=== PATIENT | female | born 1930 | race Caucasian/White ===

== ENCOUNTER 2017-02-19 07:59 | Observation (INO) | payer MEDICARE, OTHER ==
[~2017-02-19] VITALS: Ht 154.9 cm; Wt 53.4 kg
[~2017-02-19 07:59] MED LIST: BENADRYL25 M2 PO; FLONASE NASAL S16 GM NS; LOPRESSOR 550 MG/TAB PO; NORVASC2.5 MG PO; PREDNISONE20 MG PO; PRINIVIL5 MG PO; PROVENTIL0.09 MG/AC IH; ZANTAC 150MG T150 MG PO
[2017-02-19 08:56] LABS: BASO % 0.6 % (0.0-2.0); EOS # 0.1 (0.0-0.7); EOS % 2.4 % (0-4.0); GRAN # 3.4 (1.4-6.5); GRAN % 69.2 % (42.2-75.2); HEMATOCRIT 38.8 % (37.0-47.0); HEMOGLOBIN 13.4 g/dl (12.5-16.0); LYMPH % 19.3 % (20.0-51.0); MEAN CELL VOLUME 87 fl (80.0-100.0); MEAN CORPUSCULAR HEMOGLOBIN 30 pg (27.0-31.0); MEAN CORPUSCULAR HGB CONC 35 g/dl (33.0-37.0); MEAN PLATELET VOLUME 8.5 fl (7.4-10.4); MONO # 0.4 (0.1-0.6); MONO % 8.1 % (1.7-9.3); PLATELET COUNT 221 K/mm3 (130-400); RED BLOOD COUNT 4.45 M/mm3 (4.10-5.30); WHITE BLOOD COUNT 4.9 K/mm3 (4.8-10.8)
[2017-02-19 08:57] LABS: PH 6 (5-8); URINE APPEARANCE Clear; URINE BILIRUBIN Negative (NEGATIVE); URINE BLOOD Negative (NEGATIVE); URINE COLOR Yellow; URINE GLUCOSE Negative (NEGATIVE); URINE KETONE Negative (NEGATIVE); URINE UROBILINOGEN Negative (NEGATIVE)
[2017-02-19 08:59] LABS: SQUAMOUS EPITHELIAL None Seen /hpf; URINE BACTERIA Rare /hpf; URINE RBC 0-2 /hpf; URINE WBC 0-2 /hpf
[2017-02-19 09:01] LABS: INR 0.9 (0.8-3.0); PROTHROMBIN TIME 9.9 SECONDS (9.7-12.8)
[2017-02-19 09:06] LABS: ADJUSTED CALCIUM 8.7 mg/dL (8.4-10.2); ALANINE AMINOTRANSFERASE 26 U/L (9-52); ALBUMIN 4.5 gm/dL (3.5-5.0); ALKALINE PHOSPHATASE 87 U/L (50-136); ANION GAP 11 mmol/L (7-16); BLOOD UREA NITROGEN 14 mg/dL (7-17); CALCIUM 9.1 mg/dL (8.4-10.2); CARBON DIOXIDE 25 mmol/L (22-30); CREATININE, serum 0.76 mg/dL (0.52-1.25); GLUCOSE 106 mg/dL (74-106); POTASSIUM 4.2 mmol/L (3.4-5.0); SODIUM 121 mmol/L (137-145); TOTAL PROTEIN 7.7 gm/dL (6.4-8.2)
[2017-02-19 09:15] LABS: CHLORIDE 86 mmol/L (98-107)
[2017-02-19 09:18] LABS: TROPONIN-I < 0.012 ng/mL (0.000-0.034)
[2017-02-19] MEDS ORDERED: NEXIUM 40MG40 MG PO (12:03)
[2017-02-19 12:04] LABS: CALCIUM 8.1 mg/dL (8.4-10.2); CREATININE, serum 0.72 mg/dL (0.52-1.25); POTASSIUM 4.4 mmol/L (3.4-5.0)
[2017-02-19 13:53] VITALS: BP 157/56; PULSE 64; TEMP 97.8
[2017-02-19 15:48] VITALS: BP 157/52; PULSE 69; TEMP 97.8
[2017-02-19 17:16] VITALS: BP 157/52; PULSE 69; TEMP 97.8
[2017-02-19 20:00] VITALS: BP 116/53; PULSE 67; TEMP 97
[2017-02-19 22:07] VITALS: BP 116/53; PULSE 67; TEMP 97
[2017-02-20] VITALS (7 sets, daily range): BP systolic 119–157; BP diastolic 48–57; PULSE 61–75; TEMP 96.9–98.7
[2017-02-20 06:43] LABS: CALCIUM 8.2 mg/dL (8.4-10.2); CREATININE, serum 0.75 mg/dL (0.52-1.25); POTASSIUM 3.9 mmol/L (3.4-5.0)
[2017-02-20 11:18] LABS: HELICOBACTER IgG 6.35 OD Ratio (<0.8)
[2017-02-20] MEDS ORDERED: PROTONIX 40MG T40 MG PO (17:08)
[2017-02-20] MEDS ORDERED: NORVASC 5MG5 MG/TAB PO (17:09)
== END 2017-02-20 17:43 | disposition home or self-care (01) ==
LOC: COL.ER 07:59 → MEDICAL 12:35
PROVIDERS: Emergency Medicine; Physician Assistant
DX: K26.9 Duodenal ulcer, unspecified as acute or chronic, without hemorrhage or perforation (principal); Z79.1 Long term (current) use of non-steroidal anti-inflammatories (NSAID); E87.1 Hypo-osmolality and hyponatremia; I10 Essential (primary) hypertension; I34.0 Nonrheumatic mitral (valve) insufficiency; J45.909 Unspecified asthma, uncomplicated; Z66 Do not resuscitate; F03.90 Unspecified dementia, unspecified severity, without behavioral disturbance, psychotic disturbance, mood disturbance, and anxiety; F06.8 Other specified mental disorders due to known physiological condition; K76.89 Other specified diseases of liver; K21.9 Gastro-esophageal reflux disease without esophagitis; Z91.14 Patient's other noncompliance with medication regimen; Z90.710 Acquired absence of both cervix and uterus; Z85.828 Personal history of other malignant neoplasm of skin; R01.1 Cardiac murmur, unspecified
CPT/HCPCS: C9113; G0378; J1650; J2250; J3010; J7030; J7040; Q9967